=== PATIENT | male | born 2000 | race Two or more races ===

== ENCOUNTER 2024-09-09 10:46 | Emergency (ER) | payer OTHER ==
[~2024-09-09] VITALS: Ht 162.6 cm; Wt 52.2 kg
[2024-09-09 13:46] LABS: HEMATOCRIT 44.5 % (39.0-48.0); HEMOGLOBIN 15.6 g/dL (13-16.00); MEAN CELL VOLUME 82.9 fL (80.0-100.00); MEAN CORPUSCULAR HEMOGLOBIN 29.1 pg (27.00-32.0); MEAN CORPUSCULAR HGB CONC 35.1 g/dl (32.0-36.0); PLATELET COUNT 352 K/uL (150-450); RED BLOOD COUNT 5.37 M/uL (4.00-6.00); RED CELL DISTRIBUTION WIDTH 14.1 % (11.5-14.5)
[2024-09-09 13:54] LABS: PH,URINE 7.5 (5.0-8.0); URINE APPEARANCE Clear; URINE BILIRRUBIN Negative (NEGATIVE); URINE BLOOD Negative; URINE COLOR Yellow; URINE GLUCOSE Negative (NEGATIVE); URINE KETONE Negative (NEGATIVE); URINE LEUKOCYTE Negative; URINE NITRATE Negative; URINE PROTEIN Negative (NEGATIVE); URINE UROBILINOGEN 0.2 E.U./dl
[2024-09-09 13:56] LABS: URINE RBC 9.5 uL (0.0-20.8)
[2024-09-09 14:02] LABS: CREATININE SERUM 0.81 mg/dL (0.70-1.30); GFR 119.16; POTASSIUM 4.25 mEq/L (3.5-5.1)
[2024-09-09 14:14] LABS: CALCIUM 9.6 mg/dL (8.5-10.1)
[2024-09-09 15:44] LABS: URINE BACTERIA 1.2 uL (0.0-1933); URINE EPITHELIAL CELLS 0.1 uL (0.0-38.8)
== END 2024-09-09 18:30 | disposition home or self-care (01) ==
LOC: ER 10:49
PROVIDERS: Emergency Medicine
DX: R10.31 Right lower quadrant pain (principal)